=== PATIENT | female | born 1990 | race Hispanic/Latino ===

== ENCOUNTER 2017-01-30 20:37 | Inpatient (IN) | payer OTHER ==
[2017-01-30 21:19] VITALS: BMI 31.8
[2017-01-30] MEDS ORDERED: Lidocaine 1% (PF) 30 ML VIAL SC PRN (21:29)
[2017-01-30] MEDS ORDERED: Misoprostol 200 MCG TAB PR PRN (21:29)
[2017-01-30] MEDS ORDERED: Ondansetron HCl/PF 4 MG/2 ML Vial IVP PRN (21:29)
[2017-01-30] MEDS ORDERED: Promethazine HCl 25 MG/ML VIAL IM PRN (21:29)
[2017-01-30] MEDS ORDERED: LR / Pitocin 40 units/1000 ml 1,000 ML IV PRN (21:29)
[2017-01-30] MEDS ORDERED: HYDROcodone/Acetaminophen 5/325 mg Tablet PO PRN ×2 (21:29)
[2017-01-30] MEDS ORDERED: Ibuprofen 800 MG TAB PO PRN (21:29)
[2017-01-30] MEDS ORDERED: Penicillin G Potassium 5 MILL.UNITS VIAL ONE (21:34)
[2017-01-30] MEDS ORDERED: Sodium Chloride 0.9% 100 ML ONE (21:35)
--- NOTE | 2017-01-30 21:37 | PDOC.LDHP ---
Labor and Delivery H&P Chief complaint: loss of fluid HPI: at 2009 pt called CNM with complaints of initial gush of fluid followed by mild cramping and vaginal pressure. positive movement was reported by patient. Current gestational age (weeks): 38 Due date: 02/09/17 Dating criteria: last menstrual period (verifeid with first trimester US at 14w) Grav: 3 Para: 2 Current complications: none Abnormal US findings: No Past Medical History: none Current medications: pre- vitamins Previous surgical history: cholecystectomy Allergies/Adverse Reactions: Allergies Allergy/AdvReac Type Severity Reaction Status Date / Time No Known Allergies Allergy Unverified 01/30/17 21:10 Social history: none - Physical Exam Vital signs reviewed and normal: yes General: NAD, resting Heart: RRR Lungs: nonlabored breathing Abdomen: gravid Extremeties: no edema FHT: category 1 [place] contractions every: q5-7 - Vaginal Exam cm dilated: 4 Effacement: 75% Station: -1 - OB Labs Blood type: O RH: positive HIV: negative RPR: negative HEPSAg: negative 1 hour GCT: negative GBS: positive Urine drug screen: not done - Assessment L&D Assessment: term rupture in membranes GBS positive - Plan Plan: admit to L&D, GBS antibiotic prophylaxis -: Low intervention suite candidate.
[2017-01-30] MEDS ORDERED: Penicillin G Potassium 5 MILL.UNITS in Sodium Chloride 0.9% 100 ML IVPB SCH (22:00)
[2017-01-30] MEDS ORDERED: Lactated Ringer's 1,000 ML IV PRN (22:00)
[2017-01-30 22:21] LABS: Hematocrit 41.5 % (36.0-47.0); Mean Platelet Volume 8.1 fL (7.4-10.4); Red Blood Cell (RBC) Count 4.41 mill/uL (4.20-5.40); White Blood Cell (WBC) Count 9.2 thou/uL (4.8-10.8)
[2017-01-31] MEDS: Penicillin G 2.5 MILL.units 2.5 MILL.UNITS in Premix Bag 1 BAG IVPB SCH ×3 (02:00→10:33)
--- NOTE | 2017-01-31 03:59 | PDOC.OPDEL ---
OB Operative/Delivery Note Delivery Dr/Surgeon: Renee Talamantes CNM Pre-Delivery Diagnosis: active labor Procedure/Post Delivery Dx: spontaneous vaginal delivery Weeks gestation: 38 Anesthesia: none - Findings A Sex: female - 5 min: 9 - 10 min: 9 - Additional Findings/Plan Placenta delivered: spontaneous Repaired Obstetrical Laceration: none findings: other Estimated blood loss: 400 Compilations/Other Findings: nuchal cord times one, reduced on the perineum Post delivery plan: routine recovery
[2017-01-31] MEDS ORDERED: Benzocaine/Menthol 20-0.5% 60 ML CAN TOP PRN (10:00)
[2017-01-31] MEDS ORDERED: Misoprostol 200 MCG TAB VAG SCH (10:00)
[2017-01-31] MEDS ORDERED: Bisacodyl 10 MG SUPP PR PRN (10:00)
[2017-01-31] MEDS ORDERED: Ondansetron HCl/PF 4 MG/2 ML Vial IVP PRN (10:00)
[2017-01-31] MEDS ORDERED: Lanolin Ointment 7 GM TUBE TOP PRN (10:00)
[2017-01-31] MEDS ORDERED: Adacel (T-DAP) 0.5 ML VIAL IM ONE (10:00)
[2017-01-31] MEDS ORDERED: HYDROcodone/Acetaminophen 5/325 mg Tablet PO PRN (10:00)
[2017-01-31] MEDS ORDERED: Measles/Mumps/Rubella 10 MCG/0.5 ML VIAL SC ONE (10:00)
[2017-01-31] MEDS ORDERED: LR / Pitocin 40 units/1000 ml 1,000 ML IV SCH (10:00)
[2017-01-31] MEDS ORDERED: Milk Of Magnesia 30 ML UDCUP PO PRN (10:00)
[2017-01-31] MEDS ORDERED: Sodium Chloride 0.9% 10 ML ONE (10:06)
[2017-01-31] MEDS ORDERED: Prenatal Vitamin 1 TAB PO SCH (10:15)
[2017-01-31] MEDS ORDERED: Ferrous Sulfate 325 MG TAB PO SCH (10:15)
[2017-01-31] MEDS: HYDROcodone/Acetaminophen 5/325 mg Tablet PO PRN ×3 (10:28→22:04)
[2017-01-31] MEDS: Docusate (Surfak) 240 MG CAP PO SCH ×2 (10:30→21:53)
[2017-01-31] MEDS: Ibuprofen 800 MG TAB PO SCH ×2 (10:30→17:29)
[2017-01-31] MEDS: Ferrous Sulfate 325 MG TAB PO SCH (17:32)
[2017-01-31 20:29] VITALS: TEMP 98
[2017-02-01] MEDS: Ibuprofen 800 MG TAB PO SCH ×2 (02:57→09:13)
[2017-02-01 05:47] LABS: Hematocrit 35.9 % (36.0-47.0); Mean Platelet Volume 8.3 fL (7.4-10.4); Red Blood Cell (RBC) Count 3.74 mill/uL (4.20-5.40); White Blood Cell (WBC) Count 10.2 thou/uL (4.8-10.8)
[2017-02-01 08:55] VITALS: BP 116/75
[2017-02-01] MEDS ORDERED: Prenatal Vitamin 1 TAB PO SCH (09:00)
[2017-02-01] MEDS: Docusate (Surfak) 240 MG CAP PO SCH (09:13)
[2017-02-01] MEDS: Ferrous Sulfate 325 MG TAB PO SCH (09:14)
--- NOTE | 2017-02-01 13:44 | PDOC.PP ---
Post Progress Note Post Day #: 1 -: doing well. no concerns. PO intake tolerated: yes Flatus: yes Ambulation: yes Vital Signs (12 hours) Temp Pulse Resp BP 02/01/17 08:54 98.0 F 70 20 116/75 02/01/17 08:05 98.0 F 70 20 02/01/17 06:05 98.0 F 63 16 109/64 Weight Weight 180 lb - Physical Examination General: NAD Cardiovascular: no m/r/g Respiratory: clear to ausculation bilateral Abdominal: + bowel sounds, lochia (scant) Fundus firm & at: -1 Extremities: negative homans (B) Skin: no rash Neurological: no gross focal deficits Psychiatric: A&Ox3 Result Diagrams: 02/01/17 05:24 Additional Labs: Post Labs Blood Type O POSITIVE 01/30/17 21:40 Hep Bs Antigen Non-Reactive S/CO (NonReactive) 01/30/17 21:40
== END 2017-02-01 15:30 | disposition home or self-care (01) | DRG 775 ==
LOC: L&D/OP 20:37 → L&D 22:20 → 3SW 01-31 09:42
PROVIDERS: ADMIT Student in an Organized Health Care Education/Training Program; ATTEND Student in an Organized Health Care Education/Training Program
PROC: 10E0XZZ Delivery of Products of Conception, External Approach (ICD-10-PCS; principal; 2017-01-31)
DX: O99.824 Streptococcus B carrier state complicating childbirth (principal); O69.81X0 Labor and delivery complicated by cord around neck, without compression, not applicable or unspecified; Z3A.38 38 weeks gestation of pregnancy; Z37.0 Single live birth
CPT/HCPCS: 36415; 85027; 86780; 87340; A4216; J2540; J7050

== ENCOUNTER 2021-02-23 07:35 | Outpatient (CLI) | payer BC | END 2021-02-23 07:36 | disposition home or self-care (01) | LOC: BICULT 07:35 | PROVIDERS: ATTEND Family Medicine | DX: R10.84 Generalized abdominal pain (principal); N76.0 Acute vaginitis | CPT/HCPCS: 76700; 76856 ==